=== PATIENT | female | born 1970 | race Caucasian/White ===

== ENCOUNTER → 2017-04-07 | Outpatient (CLI) | payer OTHER ==
--- NOTE | 2017-04-07 17:18 | RADIOLOGY REPORT (SQ) ---
EXAM DESCRIPTION: MRI CERVICAL SPINE COMBO COMPLETED DATE/TIME: 04/07/2017 4:47 pm REASON FOR STUDY: RADICULOPATHY, CERVICAL REGION M54.12 RADICULOPATHY, CERVICAL REGION COMPARISON: None. TECHNIQUE: Sagittal and Axial imaging includes T1, T2, STIR and gradient echo sequences. T1 post gissel olinium sequences. CONTRAST TYPE AND DOSE: 15 mL Multihance. RENAL FUNCTION: GFR > 60. LIMITATIONS: None. FINDINGS: ALIGNMENT: Formed along the VERTEBRAE: Intact. BONE MARROW: Normal. No marrow replacement or reactive changes. DISCS: Diffuse decreased T2 weighted intervertebral disc signal. Patient is post fusion at C4-5 with an anterior fixation plate, anchoring screws in the C4 and C5 vertebral bodies, and a disc space bon e graft. HARDWARE: None in the spine. CORD AND BASE OF BRAIN: Normal in size and signal intensity. SOFT TISSUES: No soft tissue masses. No paraspinal soft tissue masses or enhancement C1-C2: No significant spinal stenosis. C2-C3: No significant spinal stenosis or exit foraminal stenosis. C3-C4: Mild diffuse posterior disc bulging without central stenosis. No right foraminal narrowing. Mild to moderate left foraminal narrowing from facet and uncovertebral hypertrophy. C4-C5: Post fusion. No significant spinal stenosis or exit foraminal stenosis. C5-C6: No significant posterior disc bulging or central stenosis. No right foraminal narrowing. Mil d left foraminal narrowing from facet and uncovertebral hypertrophy. C6-C7: Mild posterior disc bulging is present without significant central canal or right foraminal na rrowing. Mild left foraminal narrowing from facet and uncovertebral hypertrophy. C7-T1: No significant spinal stenosis or exit foraminal stenosis. ENHANCEMENT: No abnormal posterior fossa, cervical cord, upper thoracic cord, or cervical nerve root enhancement. On sagittal image 12, there is mild contrast enhancement along the left C7-T1 facet pura nt synovium, with mild bony spurring. OTHER: No other significant finding. IMPRESSION: Post fusion at C4-5 Left-sided facet arthropathy at C7-T1 Mild degenerative changes without significant central canal stenosis. Multilevel left foraminal narrowing as above COMMENT: None. TECHNICAL DOCUMENTATION: JOB ID: [id number]- All Rights Reserved
== END ==
LOC: RAD 15:39
PROVIDERS: ATTEND Pain Medicine Interventional Pain Medicine
DX: M54.12 Radiculopathy, cervical region (principal)
CPT/HCPCS: 82565; 72156; A9577

== ENCOUNTER → 2017-08-26 | Outpatient (CLI) | payer OTHER ==
[2017-08-26 15:51] LABS: HEMOGLOBIN 13.6 g/dL (12.0-15.5); HGB HCT DIFFERENCE 1.8; MEAN CORPUSCULAR HEMOGLOBIN 31.5 pg (27.0-33.4); MEAN CORPUSCULAR HGB CONC 34.9 g/dL (32.0-36.0); MEAN CORPUSCULAR VOLUME 91 fl (80-97); RED BLOOD COUNT 4.31 10^6/uL (3.72-5.28); RED CELL DISTRIBUTION WIDTH 12.7 % (11.5-14.0); WHITE BLOOD COUNT 3.2 10^3/uL (4.0-10.5)
[2017-08-26 15:59] LABS: APPEARANCE,URINE SLIGHTLY-CLOUDY; BILIRUBIN,URINE NEGATIVE (NEGATIVE); GLUCOSE, URINE NEGATIVE (NEGATIVE); KETONES,URINE NEGATIVE (NEGATIVE); LEUKOCYTE ESTERASE,URINE TRACE (NEGATIVE); NITRITE,URINE NEGATIVE (NEGATIVE); PROTEIN,URINE NEGATIVE (NEGATIVE); URINE SPECIFIC GRAVITY 1.023; UROBILINOGEN,URINE NEGATIVE mg/dL (<2.0)
[2017-08-26 16:11] LABS: PARTIAL THROMBOPLASTIN TIME 34.7 SEC (23.5-35.8); PROTHROMBIN TIME 13.6 SEC (11.4-15.4)
[2017-08-26 16:16] LABS: BASOPHILS % (MANUAL) 0 % (0-2); EOSINOPHILS % (MANUAL) 6 % (0-6); LYMPHOCYTES % (MANUAL) 50 % (13-45); TOTAL CELLS COUNTED 100
[2017-08-26 16:17] LABS: TOXIC GRANULATION SLIGHT
== END ==
LOC: OD 14:43
PROVIDERS: ATTEND Pain Medicine Interventional Pain Medicine
DX: G89.4 Chronic pain syndrome (principal)
CPT/HCPCS: 36415; 81001; 85025; 85610; 85730

== ENCOUNTER 2017-10-12 07:17 | Day surgery (SDC) | payer OTHER ==
[2017-10-08 12:17] LABS: HEMATOCRIT 39.4 % (36.0-47.0); HEMOGLOBIN 13.6 g/dL (12.0-15.5); HGB HCT DIFFERENCE 1.4; MEAN CORPUSCULAR HEMOGLOBIN 31.4 pg (27.0-33.4); MEAN CORPUSCULAR HGB CONC 34.4 g/dL (32.0-36.0); MEAN CORPUSCULAR VOLUME 91 fl (80-97); RED BLOOD COUNT 4.31 10^6/uL (3.72-5.28); RED CELL DISTRIBUTION WIDTH 12.9 % (11.5-14.0); WHITE BLOOD COUNT 3.7 10^3/uL (4.0-10.5)
[2017-10-08 12:24] LABS: PROTHROMBIN TIME 12.3 SEC (11.4-15.4)
[2017-10-08 12:25] LABS: PARTIAL THROMBOPLASTIN TIME 33.1 SEC (23.5-35.8)
[2017-10-08 12:29] LABS: APPEARANCE,URINE CLEAR; BILIRUBIN,URINE NEGATIVE (NEGATIVE); GLUCOSE, URINE NEGATIVE (NEGATIVE); KETONES,URINE NEGATIVE (NEGATIVE); LEUKOCYTE ESTERASE,URINE NEGATIVE (NEGATIVE); NITRITE,URINE NEGATIVE (NEGATIVE); PROTEIN,URINE NEGATIVE (NEGATIVE); URINE SPECIFIC GRAVITY 1.019; UROBILINOGEN,URINE NEGATIVE mg/dL (<2.0)
--- NOTE | 2017-10-08 12:37 | RADIOLOGY REPORT (SQ) ---
EXAM DESCRIPTION: CHEST PA/LATERAL COMPLETED DATE/TIME: 10/08/2017 12:24 pm REASON FOR STUDY: PRE OP COMPARISON: None. EXAM PARAMETERS: NUMBER OF VIEWS: two views TECHNIQUE: Digital Frontal and Lateral radiographic views of the chest acquired. RADIATION DOSE: NA LIMITATIONS: none FINDINGS: LUNGS AND PLEURA: No opacities, masses or pneumothorax. No pleural effusion. MEDIASTINUM AND HILAR STRUCTURES: No masses or contour abnormalities. HEART AND VASCULAR STRUCTURES: Heart normal size. No evidence for failure. BONES: No acute findings. HARDWARE: None in the chest. OTHER: No other significant finding. IMPRESSION: NO SIGNIFICANT RADIOGRAPHIC FINDING IN THE CHEST. TECHNICAL DOCUMENTATION: JOB ID: [id number] [employer]- All Rights Reserved
[2017-10-08 12:42] LABS: BACTERIA,URINE TRACE /HPF
--- NOTE | 2017-10-08 13:17 | EKG REPORT ---
SEVERITY:- NORMAL ECG - SINUS RHYTHM : Confirmed by: Alex Ko MD 08-Oct-2017 13:17:03
[~2017-10-12 07:17] MED LIST: CEFAZOLIN 1 GM/D5W RTU 1 GM/50 ML RTUPB IV PRN; LACTATED RINGERS 1000 ML IV PRN; LIDOCAINE 0.5% INJ-PF (5 MG/ML) 50 ML SDV SUBCUT PRN
[2017-10-12] MEDS ORDERED: BUPIVACAINE HCL 0.25% /EPINEPHRINE INJ/PF 30 ML SDV ONE ×2 (07:56→07:57)
[2017-10-12] MEDS ORDERED: SODIUM BICARBONATE 8.4% INJ 50 MEQ/50 ML DISP.SYRIN ONE (07:56)
[2017-10-12] MEDS ORDERED: LIDOCAINE 1% INJ-PF (10 MG/ML) 30 ML SDV ONE (07:56)
[2017-10-12] MEDS ORDERED: LIDOCAINE 2% INJ-PF (20 MG/ML) 10 ML AMPUL ONE (09:29)
[2017-10-12] MEDS ORDERED: MIDAZOLAM 2 MG/2 ML INJ ONE (09:29)
[2017-10-12] MEDS ORDERED: FENTANYL CITRATE INJ/PF 100 MCG/2 ML AMPUL ONE (09:29)
[2017-10-12] MEDS ORDERED: ACETAMINOPHEN 100 ML IV ONE (09:29)
[2017-10-12] MEDS ORDERED: PROPOFOL INJ 200 MG/20 ML VIAL IV ONE (09:29)
[2017-10-12] MEDS ORDERED: DEXMEDETOMIDINE INJ 80 MCG/20 ML VIAL IV ONE (09:30)
[2017-10-12] MEDS ORDERED: MEPERIDINE HCL/PF INJ 25 MG/1 ML DISP.SYRIN IV PRN (10:16)
[2017-10-12] MEDS ORDERED: FENTANYL CITRATE INJ/PF 100 MCG/2 ML AMPUL IV PRN ×3 (10:16)
[2017-10-12] MEDS ORDERED: OXYCODONE-ACETAMINOPHEN 5-325 MG TABLET PO PRN ×3 (10:16→11:42)
[2017-10-12] MEDS ORDERED: PROMETHAZINE HCL INJ 25 MG/1 ML VIAL IV PRN ×2 (10:16)
[2017-10-12] MEDS ORDERED: MORPHINE SULFATE 10 MG/ML INJ IV PRN (10:16)
[2017-10-12] MEDS ORDERED: ONDANSETRON HCL INJ/PF 4 MG/2 ML SDV IV PRN (10:16)
[2017-10-12] MEDS ORDERED: DIPHENHYDRAMINE HCL 50 MG/ML VIAL IV PRN (10:16)
[2017-10-12] MEDS ORDERED: CEFAZOLIN INJ 1 GM VIAL ONE (11:37)
--- NOTE | 2017-10-12 12:04 | OPERATIVE REPORT E ---
Operative Report NAME: WILLIE MOLINA : 1970 AGE: 47Y DATE OF SURGERY: 10/12/2017 ROOM: PREOPERATIVE DIAGNOSIS: Right neck and shoulder pain with radiculopathy. POSTOPERATIVE DIAGNOSIS: Right neck and shoulder pain with radiculopathy. OPERATIVE PROCEDURE: Surgical implantation of dual spinal cord stimulating electrodes under fluoroscopic guidance with implantation of programmable rechargeable pulse generator and complex programming. SURGEON: SYED MCNAMARA M.D. ANESTHESIA: MAC. SUPERINTENDENT GENERAL: PRISCA FRIAS M.D. INDICATION: Successful outpatient trial of spinal cord stimulation. COMPLICATIONS: None. BLOOD LOSS: Minimal. SPECIMENS REMOVED: None. PROCEDURE NOTE: After obtaining informed consent and advising the patient of the risks and benefits including serious neurological injury, bleeding, and infection, allergic reaction, paralysis, quadriparesis, and , she was taken to the operating room and placed comfortably in the prone position. Arms were placed by her side. After monitors were applied, she was prepped in the usual fashion with a 3 time prep of chlorhexidine followed by 3 minute drying period prior to draping. Using fluoroscopy at preselected site, the spine was evaluated and suitable entrance site to the T7-T8 interspace was identified. The skin was anesthetized inferior to this selected site. Sharp and blunt dissection were performed after placement of local anesthesia 1% lidocaine with bicarb followed by bupivacaine 0.25% with epinephrine. The thoracic fascia was identified and undermined to create a suitable working space. It should be noted simultaneously Dr. Frias was creating the pulse generator pocket over the preselected region and the right gluteal region. Using spinal needle, 22-gauge, the perispinal musculature was anesthetized down to the interspace of T7-T8. Touhy needle 14 gauges beginning on the left side were then inserted under fluoroscopic guidance entering into the space without difficulty using loss of resistance to saline technique. Octrodes were placed in the left side first. This was then repeated on the right. Lateral views were taken to ensure posterior placement of the electrodes. The leads were advanced as done during the trial with the right lead being placed at the mid to bottom region of C2 just off to the right side down to the upper part of C4. The left lead was advanced to the position from the bottom of C7 to the top of T2 slightly again off to the right. Reprogramming and programming were performed to obtain satisfactory stimulation in the appropriate regions. This was accomplished. It should be noted the patient was awake during this time and indicating successful coverage of the affected and desired regions. Decision was made to continue with the implant. The patient was given deeper anesthesia. The 0 pursestrings using 0 M[place]il[place] were placed at each needle followed by distal stay suture. Beginning on the left, the Tuohy needle was removed with care being made not to dislodge the electrode. The anchor was then placed about the electrode and short up to the *------*. Pursestring was secured and the anchor was subsequently secured with both the pursestring suture and the distal stay suture. The *------* was then secured as well. This was repeated on the left side as described. Electrode position was checked in AP and lateral views and continued to be satisfactory. From the pulse generator pocket, the tunneling tool was utilized and exited out a lumbar thoracic junction site through a small incision. An additional tunneling tool was then placed through this and exited out the surgical site at the thoracic region. It should be noted, all the tracts were anesthetized with 1% lidocaine. The leads were then tunneled to the pulse generator pocket without difficulty. All wounds were copiously irrigated. A leaf coil was placed on the lumbar spine as well as a leaf coil placed behind the pulse generator. Hemostasis was inspected and felt to be satisfactory. All wounds were then closed with inverted vertical mattress sutures using 3-0 Polysorb. Skin edges came nicely together. The skin was then taped with Dermabond tape followed by cement. When this was dry, Telfa and Tegaderms were placed over this. The patient was then taken to the PACU for further postoperative care and monitoring. DICTATING PHYSICIAN: SYED MCNAMARA M.D. [id number] PHY#: [id number] ID: [id number] JOB#: [id number] ACCT: [id number] cc:SYED MCNAMARA M.D. >
--- NOTE | 2017-10-12 12:57 | RADIOLOGY REPORT (SQ) ---
EXAM DESCRIPTION: NO CHG FLUORO; CERV SP 3 VIEW OR LESS COMPLETED DATE/TIME: 10/12/2017 12:29 pm REASON FOR STUDY: SPINAL STIMULATOR PLACEMEMT ASSISTED WITH FLUORO IN OR G89.4 CHRONIC PAIN SYNDROM E COMPARISON: None. FLUOROSCOPY TIME: 6.9 minutes 17 images saved to PACS. TECHNIQUE: Intra-operative images acquired during surgical procedure to evaluate progress. NUMBER OF IMAGES: 17 LIMITATIONS: None. FINDINGS: 2 neurostimulator is. Tips at the level of C2 and T1 IMPRESSION: IMAGE(S) OBTAINED DURING PROCEDURE. COMMENT: Quality ID 145: Final reports for procedures using fluoroscopy that document radiation exp osure indices, or exposure time and number of fluorographic images (if radiation exposure indices are not available) Please consult full operative report of the attending physician for description of the procedure. TECHNICAL DOCUMENTATION: JOB ID: [id number] [employer]- All Rights Reserved
[2017-10-12 18:10] VITALS: BP 122/79
== END 2017-10-12 13:15 | disposition home or self-care (01) ==
LOC: OROUT 07:17
PROVIDERS: ATTEND Pain Medicine Interventional Pain Medicine
PROC: 00HU3MZ Insertion of Neurostimulator Lead into Spinal Canal, Percutaneous Approach (ICD-10-PCS; 2017-10-12)
PROC: 0JH70MZ Insertion of Stimulator Generator into Back Subcutaneous Tissue and Fascia, Open Approach (ICD-10-PCS; principal; 2017-10-12 09:30)
DX: G89.4 Chronic pain syndrome (principal); I10 Essential (primary) hypertension; M96.1 Postlaminectomy syndrome, not elsewhere classified; M79.1 Myalgia; M54.12 Radiculopathy, cervical region; Z79.1 Long term (current) use of non-steroidal anti-inflammatories (NSAID); Z79.899 Other long term (current) drug therapy; Z79.891 Long term (current) use of opiate analgesic
CPT/HCPCS: 63685; 63650; 93005; 36415; 85027; 85610; 85730; 81025; 81001; 72040; 71020; 93010; C1820; J2250; J3490 ×5; J0690 ×2; J3010; J2704; J0131; 1936

== ENCOUNTER 2018-08-22 08:06 | Day surgery (SDC) | payer BC, OTHER ==
[2018-08-22 09:00] LABS: INTERNATIONAL RATION (INR) 0.92; PROTHROMBIN TIME 12.8 SEC (11.4-15.4)
[2018-08-22 09:01] LABS: PARTIAL THROMBOPLASTIN TIME 35.3 SEC (23.5-35.8)
[2018-08-22] MEDS ORDERED: MIDAZOLAM 2 MG/2 ML INJ ONE (10:44)
[2018-08-22] MEDS ORDERED: FENTANYL CITRATE INJ/PF 100 MCG/2 ML AMPUL ONE (10:44)
--- NOTE | 2018-08-22 12:03 | RADIOLOGY REPORT (SQ) ---
EXAM DESCRIPTION: MYELOGRAM CERVICAL; CT CERVICAL SPINE WITH COMPLETED DATE/TIME: 08/22/2018 11:29 am; 08/22/2018 11:30 am REASON FOR STUDY: RADICULOPATHY M54.12 RADICULOPATHY, CERVICAL REGION COMPARISON: MRI cervical spine 04/07/2017 FLUOROSCOPY TIME: 1 minutes 11 seconds 7 digital fluoroscopic images saved to PACS. Prone cross-table lateral cervical spine. Postmyelogra m CT with CT sagittal and coronal reconstructions TECHNIQUE: Fluoroscopic guided lumbar myelogram. Postmyelogram CT cervical spine with sagittal and coronal reconstructions LIMITATIONS: None. PROCEDURE: After written consent and assessment were obtained, the patient was brought into the fluo roscopy room and placed prone on the table. The patient's lower back was prepped in a sterile fashio n and an entry site was selected under live fluoroscopic guidance. The entry site was anesthetized wi th 3 mL of 1% lidocaine. The 22 gauge spinal needle was advanced through the skin and into the theca l sac at the left paracentral L2-3 level. Contrast was injected into the thecal sac. Following the procedure the needle was removed and a sterile bandage was placed of the site. At my direction, with continuous physiologic monitoring of the patient by nursing personnel, consciou s sedation was achieved with 0.5 mg of IV Versed at and 25 mcg of IV fentanyl during the procedure. There were no complications post sedation. CONTRAST: 10 mL Isovue-300 M. IMAGES ACQUIRED: Fluoroscopic prone oblique images, prone cross-table lateral plain film. Postmyelog annette CT with sagittal and coronal reconstructions FINDINGS: Myelographic findings: No myelographic block was encountered during prone Trendelenburg positioning. No central canal stenosis is identified at myelography. Symmetric filling of the nerve root sleeves in the cervical spine. Neurostimulator electrodes are seen in the dorsal spinal canal from the C1 th rough C3 level and from the C7 through T2 level. Old fusion without hardware at C5-6. Old fusion wi th hardware at C4-5. Minimal ventral epidural defect at C3-4. Postmyelogram CT: Postmyelogram CT was performed from the skullbase to the T2 level, data reviewed at bone and soft tis bao windows with sagittal and coronal reconstructions. Craniocervical junction, C1-2, C2-3 unremarkable. At C3-4, minimal posterior disc bulge is present without significant central canal narrowing. No rig ht foraminal narrowing. Mild left foraminal narrowing from facet and uncovertebral hypertrophy. At C4-5, patient is post fusion with anterior fixation plate and bone graft. No central or foraminal stenosis. At C5-6, patient is post fusion with bone graft, no hardware. No central or right foraminal narrowin g. Mild left foraminal narrowing from facet and uncovertebral hypertrophy At C6-7, no central or right foraminal narrowing is present. Mild left foraminal narrowing from face t hypertrophy. At C7-T1, there is no central canal stenosis. Neural foramina are widely patent. Good contrast enha ncement along the bilateral nerve root sleeves. Moderate left facet arthropathy without left C7-T1 s ignificant foraminal encroachment. T1-2 is unremarkable Visualized neck soft tissues, lung apices are unremarkable. Again, neurostimulator leads are seen in the dorsal cervical spinal canal. IMPRESSION: Cervical myelogram and postmyelogram CT. No high-grade cervical spine central or forami nal encroachment. IV conscious sedation COMMENT: Patient medication list reviewed: Yes- Quality ID# [id number]:Eligible professional attests to doc umenting in the medical record they obtained, updated, or reviewed the patient's current medications. . Quality ID 145: Final reports for procedures using fluoroscopy that document radiation exposure josie marquise, or exposure time and number of fluorographic images (if radiation exposure indices are not avail able) TECHNICAL DOCUMENTATION: JOB ID: [id number] [employer]- All Rights Reserved Reading location - IP/workstation name: [email or web address]
[2018-08-22 12:50] VITALS: BP 120/79
== END 2018-08-22 12:50 | disposition home or self-care (01) ==
LOC: RAD 08:06
PROVIDERS: ATTEND Physician Assistant
DX: M54.12 Radiculopathy, cervical region (principal); M79.601 Pain in right arm; I10 Essential (primary) hypertension; Z79.899 Other long term (current) drug therapy
CPT/HCPCS: 36415; 85610; 85730; 72240; 72126; J2250; J3010

== ENCOUNTER → 2020-03-27 | Outpatient (CLI) | payer BC ==
[2020-03-27 10:03] VITALS: BP 155/85
--- NOTE | 2020-03-27 10:03 | ER RDC ASSESSMENT REPORT ---
Intake - In the Last 14 days Have you traveled outside [place]?: No Have you been in close contact with someone CONFIRMED: No Worked in Healthcare?: No - Symptoms Subjective Fever([place] feverish): Yes Chills: Yes Muscule Aches: Yes Runny Nose: Yes Sore Throat: No Cough (New or worsening chronic cough): Yes Shortness of breath: Yes Nausea or Vomiting: No Headache: Yes Abdominal Pain: No Diarrhea(3 or more loose stools in last 24 hours): Yes - Do you have any of the following Chronic lung disease: Asthma or emphysema or COPD: Yes Chronic Lung Disease Comment: History of asthma Cystic Fibrosis: No Diabetes: No High Blood Pressure: Yes Cardiovascular Disease: Yes Chronic Kidney Disease: No Chronic Liver Disease: No Chronic blood disorder like Sickle Cell Disease: No Weak immune system due to disease or medication: No Neurologic condition that limits movement: No Developmental delay - Moderate to Severe: No Recent (within past 2 weeks) or current : No Morbid Obesity (>100 pounds over ideal weight): No Obesity Comment: Height 5 feet 2 inches weight 155 pounds Other Comment: History of cervical radiculopathy - Objective Temperature: 98.1 F Pulse Rate: 82 Respiratory Rate: 20 Blood Pressure: 155/85 O2 Sat by Pulse Oximetry: 98 Objective: Given above, testing performed: If Testing Performed: Test Specimen Type Sent to General - General Information source: Patient Notes: Here today at [facility] for COVID testing. patient reports feeling sick on Wednesday. Started with a fever worse during the night his chills body aches has a dry cough and feels tight in the chest running started to improve has been doing the same thing each night. [facility] primary care provider is Dr. Arias and has had a difficult time getting up with their office at . Reports was sick in February much worse than currently. Since then has loss of taste and smell. Improved but was not able to get COVID testing done - Related Data Allergies/Adverse Reactions: No Known Allergies Allergy (Verified 10/08/17 11:59) Past Medical History - General Information source: Patient - Social History Smoking Status: Never Smoker Family History: Reviewed & Not Pertinent - Past Medical History Cardiac Medical History: Reports: Hx Hypertension - ON MEDS Denies: Hx Coronary Artery Disease, Hx Heart Attack Pulmonary Medical History: Denies: Hx Asthma, Hx Bronchitis, Hx COPD, Hx Pneumonia Neurological Medical History: Reports: Hx Migraine. Denies: Hx Cerebrovascular Accident, Hx Seizures Musculoskeletal Medical History: Denies Hx Arthritis Past Surgical History: Reports: Hx Orthopedic Surgery - c-spine. Physical Exam - General General appearance: Appears well, Alert In distress: None Notes: PHYSICAL EXAMINATION: GENERAL: Well-appearing and in no acute distress. HEAD: Atraumatic, normocephalic. EYES: sclera anicteric, conjunctiva are normal. ENT: nares patent. Moist mucous membranes. NECK: Normal range of motion, supple without lymphadenopathy LUNGS: CTAB and equal. No wheezes rales or rhonchi. Noted occasional dry cough. Lung sounds clear resp even and unlabored. HEART: Regular rate and rhythm without murmurs ABDOMEN: Soft, nontender, normal bowel sounds, no guarding. EXTREMITIES: No cyanosis. NEUROLOGICAL: Normal speech. PSYCH: Normal mood, normal affect. SKIN: Warm, Dry, normal turgor, Diagnostic Results Laboratory Results: Informed of negative rapid strep and negative rapid flu results pending strep culture pending COVID testing results. Patient provided instructions regarding COVID to include: As a person under investigation for Covid 19, the [place] department of Health and Human Services, division of public health advises you to adhere to the following guidance until your test results are reported to you. If your test result is positive, you will receive additional information from your provider and your local health department at that time. Remain at home until you are cleared by the health provider or public health authorities. Keep a log of visitors to your home, notify any visitors to your home of your isolation status. If you plan to move to a new address or leave the county, notify the local health department in your County. Call your doctor or seek care if you have an urgent medical need. Before seeking medical care, call ahead to get instructions from the provider before arriving at the medical office clinic or hospital. Notify them that you are being tested for the virus that causes Covid 19 so that arrangements can be made, as necessary, to prevent transmission to others in the healthcare setting. Next, notify the local health department in your county. If a medical emergency arises and you need to call 911, inform the first responders that you are being tested for the virus that causes Covid 19. Next, notify the local health department in your county. Patient Education/Counseling Counseling/Education: Patient presents with upper respiratory symptoms worrisome for possible Covid 19. Patient does not have emergency worring symptoms such as difficulty breathing, shortness of breath, chest pain, pressure, confusion or cyanosis. Patient appears suitable for discharge. patient to follow up today with PCP at . TO ED for persistent or worsening symptoms. Patient's vital signs are stable and patient is nontoxic in appearance. Good return precautions have been discussed with patient, patient verbalized understanding and is agreeable with discharge plan of care at this time. RDC Discharge - Discharge Clinical Impression: COVID - 19 SCREENING Condition: Stable Disposition: Home; Selfcare
[2020-03-27 11:39] LABS: A TYPE INFLUENZA AG NEGATIVE (NEGATIVE); B INFLUENZA AG NEGATIVE (NEGATIVE)
== END ==
LOC: RDC 09:13
PROVIDERS: ATTEND Nurse Practitioner Family
DX: Z20.828 Contact with and (suspected) exposure to other viral communicable diseases (principal); R50.9 Fever, unspecified; M79.10 Myalgia, unspecified site; R05 Cough; J45.909 Unspecified asthma, uncomplicated; R06.02 Shortness of breath; R51 Headache; R09.89 Other specified symptoms and signs involving the circulatory and respiratory systems; R19.7 Diarrhea, unspecified
CPT/HCPCS: 87070; 87635; 87804; 87880; 99211